=== PATIENT | female | born 1965 | race Caucasian/White ===

== ENCOUNTER → 2017-07-24 | Outpatient (CLI) | payer OTHER ==
[~2017-07-24] MED LIST: ACET325T14 PO; DEXA4TAB PO; ESTR50GE TP; HYDR-3240 PO; LEVE500T53 PO; PANT40TA5 PO
== END ==
LOC: ROC 07-24 10:15
PROVIDERS: ATTEND Radiology Radiation Oncology
DX: C71.9 Malignant neoplasm of brain, unspecified (principal); M54.12 Radiculopathy, cervical region
CPT/HCPCS: 99214; G0463

== ENCOUNTER → 2017-10-01 | Outpatient (CLI) | payer OTHER ==
[~2017-10-01] MED LIST changes: +AMOX1TAB64 PO; +AZIT250T PO; +DEXA1.5T5 PO; +FAMO-79 PO; +FLUC200T PO; +GUAI200T3 PO; +LACT1CAP24 PO; +MULT-479 PO; +ONDA4TAB10 PO; +SULF-169 PO; +TEMO140C5 PO
== END | disposition home or self-care (01) ==
LOC: CFH 11:19
PROVIDERS: ATTEND Radiology Radiation Oncology
DX: J18.9 Pneumonia, unspecified organism (principal); C71.1 Malignant neoplasm of frontal lobe
CPT/HCPCS: 71046

== ENCOUNTER 2017-10-02 12:02 | Inpatient (IN) | payer OTHER ==
[~2017-10-02] VITALS: Ht 170.2 cm; Wt 77.4 kg
[~2017-10-02 12:02] MED LIST changes: -AMOX1TAB64 PO; -AZIT250T PO; -DEXA1.5T5 PO; -FAMO-79 PO; -FLUC200T PO; -GUAI200T3 PO; -LACT1CAP24 PO; -MULT-479 PO; -ONDA4TAB10 PO; -SULF-169 PO; -TEMO140C5 PO
[2017-10-02 13:19] VITALS: BP 111/75
[2017-10-02] MEDS ORDERED: MULT-479 PO (14:21)
[2017-10-02] MEDS ORDERED: AZIT250T PO (14:21)
[2017-10-02] MEDS ORDERED: ONDA4TAB10 PO (14:21)
[2017-10-02] MEDS ORDERED: TEMO140C5 PO (14:21)
[2017-10-02] MEDS ORDERED: FLUC200T PO (14:21)
[2017-10-02] MEDS ORDERED: FAMO-79 PO (14:21)
[2017-10-02] MEDS ORDERED: DEXA1.5T5 PO ×2 (14:21)
[2017-10-02 14:32] LABS: BASOPHILS # (AUTO) 0.02 x10^3/uL (0-0.1); BASOPHILS % (AUTO) 0 % (0-1); EOSINOPHILS % (AUTO) 0 % (1-7); LYMPHOCYTES # (AUTO) 0.56 x10^3/uL (1-3.4); LYMPHOCYTES % (AUTO) 8 % (22-44); MD NO; MEAN CORPUSCULAR HEMOGLOBIN 31.9 pg (27.0-34.8); MEAN CORPUSCULAR HGB CONC 33.7 g/dL (32.4-35.8); MEAN CORPUSCULAR VOLUME 94.6 fL (80-100); MONOCYTES # (AUTO) 0.36 x10^3/uL (0.2-0.8); MONOCYTES % (AUTO) 5 % (2-9); NEUTROPHILS % (AUTO) 87 % (42-75); PLATELET COUNT 130 x10^3/uL (130-400); RED BLOOD COUNT 3.57 x10^6/uL (3.82-5.3); RED CELL DISTRIBUTION WIDTH 15.6 % (9.6-15.2)
[2017-10-02 14:43] LABS: ALANINE AMINOTRANSFERASE 58 U/L (12-78); ANION GAP 7 mmol/L (5-15); CALCIUM 8.2 mg/dL (8.5-10.1); CHLORIDE 102 mmol/L (98-107); CREATININE 0.78 mg/dL (0.55-1.02)
[2017-10-02 14:45] LABS: ALKALINE PHOSPHATASE 45 U/L (45-117); BILIRUBIN,TOTAL 0.9 mg/dL (0.2-1.0); TOTAL PROTEIN 6.1 g/dL (6.4-8.2)
[2017-10-02] MEDS: ENOXAPARIN 40 MG/0.4 ML SQ SCH (15:30)
[2017-10-02] MEDS ORDERED: morphine SULFATE 10 MG/ML, 1ML IVPush PRN (15:30)
[2017-10-02] MEDS ORDERED: hydrALAzine 20 MG/ML, 1ML IVPush PRN (15:30)
[2017-10-02] MEDS ORDERED: ONDANSETRON 2MG/ML, 2ML IVPush PRN (15:30)
[2017-10-02] MEDS ORDERED: TEMAZEPAM 15 MG CAPSULE PO PRN (15:30)
[2017-10-02] MEDS ORDERED: ACETAMINOPHEN 325 MG TABLET PO PRN (15:30)
[2017-10-02 15:56] LABS: FREE T4 (FREE THYROXINE) 1.4 ng/dL (0.76-1.46); THYROID STIMULATING HORMONE 1.41 mIU/L (0.358-3.740)
[2017-10-02] MEDS ORDERED: CEFTRIAXONE 2 GM in SODIUM CHLORIDE 0.9% 50 ML IV SCH (16:00)
[2017-10-02] MEDS ORDERED: CEFTRIAXONE PMX 2GM/50ML 50 ML IV SCH (16:00)
[2017-10-02] MEDS ORDERED: FLUCONAZOLE 200 MG TABLET PO SCH (16:00)
[2017-10-02] MEDS: PLEASE ENTER HEIGHT AND WEIGHT MC SCH ×3 (17:17→18:23)
[2017-10-02 17:30] VITALS: BP 121/78
[2017-10-02 18:13] VITALS: BP 121/78
[2017-10-02] MEDS ORDERED: FLUCONAZOLE 100 MG TABLET ONE (18:26)
[2017-10-02] MEDS: GUAIFENESIN 200 MG TABLET PO SCH ×2 (18:29→23:59)
[2017-10-02] MEDS: HYDROcodone/APAP 5/325 TABLET PO PRN (18:29)
[2017-10-02] MEDS: AZITHROMYCIN 500 MG in SODIUM CHLORIDE 0.9% 250 ML IV SCH (18:29)
[2017-10-02] MEDS: SODIUM CHLORIDE 0.9% 1,000 ML IV SCH (18:33)
[2017-10-02] MEDS: CEFTRIAXONE 2 GM in DEXTROSE 5% 50 ML IV SCH (20:01)
[2017-10-02] MEDS: LEVETIRACETAM 500 MG TABLET PO SCH (20:10)
[2017-10-02 20:11] VITALS: BP 107/70
[2017-10-02] MEDS ORDERED: DEXAMETHASONE 1 MG TABLET PO SCH (21:00)
[2017-10-02 21:20] LABS: MICROSCOPIC AUTO
[2017-10-02 21:21] LABS: CULTURE INDICATED? NO
[2017-10-03] MEDS: HYDROcodone/APAP 5/325 TABLET PO PRN (03:26)
[2017-10-03 03:34] VITALS: BP 110/71
[2017-10-03 04:53] LABS: BASOPHILS # (AUTO) 0.02 x10^3/uL (0-0.1); BASOPHILS % (AUTO) 0 % (0-1); EOSINOPHILS # (AUTO) 0.01 x10^3/uL (0-0.4); EOSINOPHILS % (AUTO) 0 % (1-7); LYMPHOCYTES # (AUTO) 0.36 x10^3/uL (1-3.4); LYMPHOCYTES % (AUTO) 5 % (22-44); MD NO; MEAN CORPUSCULAR HEMOGLOBIN 32.9 pg (27.0-34.8); MEAN PLATELET VOLUME 7.1 fL (7.4-10.4); MONOCYTES # (AUTO) 0.33 x10^3/uL (0.2-0.8); MONOCYTES % (AUTO) 5 % (2-9); NEUTROPHILS # (AUTO) 6.11 x10^3/uL (1.8-6.8); NEUTROPHILS % (AUTO) 90 % (42-75); PLATELET COUNT 146 x10^3/uL (130-400); RED BLOOD COUNT 3.39 x10^6/uL (3.82-5.3); RED CELL DISTRIBUTION WIDTH 15.2 % (9.6-15.2)
[2017-10-03 05:01] LABS: ALBUMIN 2.8 g/dL (3.4-5.0); ANION GAP 9 mmol/L (5-15); CALCIUM 7.8 mg/dL (8.5-10.1); CHLORIDE 102 mmol/L (98-107)
[2017-10-03 05:04] LABS: ALANINE AMINOTRANSFERASE 54 U/L (12-78); ALKALINE PHOSPHATASE 45 U/L (45-117); BILIRUBIN,TOTAL 0.8 mg/dL (0.2-1.0); CREATININE 0.67 mg/dL (0.55-1.02); TOTAL PROTEIN 6.2 g/dL (6.4-8.2)
[2017-10-03] MEDS: SODIUM CHLORIDE 0.9% 1,000 ML IV SCH ×2 (05:56→15:55)
[2017-10-03 07:17] VITALS: BP 133/85
[2017-10-03] MEDS: GUAIFENESIN 200 MG TABLET PO SCH ×3 (08:26→20:34)
[2017-10-03] MEDS: LEVETIRACETAM 500 MG TABLET PO SCH ×2 (08:26→20:38)
[2017-10-03] MEDS: MULTIVITAMINS WITH IRON TABLET PO SCH (08:26)
[2017-10-03] MEDS: FAMOTIDINE 20 MG TABLET PO SCH (08:27)
[2017-10-03] MEDS ORDERED: TEMOZOLOMIDE 140 MG PO SCH (09:00)
[2017-10-03] MEDS ORDERED: DEXAMETHASONE 4 MG TABLET PO SCH (09:00)
[2017-10-03] MEDS: DEXAMETHASONE 4 MG TABLET PO SCH (11:30)
[2017-10-03] MEDS: POTASSIUM CHLORIDE 20 MEQ TAB.ER.PRT PO SCH ×2 (11:52→14:00)
[2017-10-03 12:47] VITALS: BP 119/77
[2017-10-03] MEDS: ENOXAPARIN 40 MG/0.4 ML SQ SCH (15:30)
[2017-10-03] MEDS: PLEASE ENTER HEIGHT AND WEIGHT MC SCH (15:30)
[2017-10-03] MEDS: AZITHROMYCIN 500 MG in SODIUM CHLORIDE 0.9% 250 ML IV SCH (16:04)
[2017-10-03 18:30] VITALS: BP 108/69
[2017-10-03] MEDS: SULFAMETH./TRIMETHOPRIM DS 800MG/160MG TABLET PO SCH (20:33)
[2017-10-03] MEDS: CEFTRIAXONE 2 GM in DEXTROSE 5% 50 ML IV SCH (20:34)
[2017-10-04 01:45] VITALS: BP 114/71
[2017-10-04 04:51] LABS: BASOPHILS % (AUTO) 0 % (0-1); EOSINOPHILS % (AUTO) 0 % (1-7); LYMPHOCYTES # (AUTO) 0.32 x10^3/uL (1-3.4); LYMPHOCYTES % (AUTO) 5 % (22-44); MD NO; MEAN CORPUSCULAR HEMOGLOBIN 32.7 pg (27.0-34.8); MEAN CORPUSCULAR HGB CONC 34.4 g/dL (32.4-35.8); MEAN CORPUSCULAR VOLUME 95.1 fL (80-100); MEAN PLATELET VOLUME 7.3 fL (7.4-10.4); MONOCYTES # (AUTO) 0.35 x10^3/uL (0.2-0.8); MONOCYTES % (AUTO) 5 % (2-9); NEUTROPHILS # (AUTO) 5.83 x10^3/uL (1.8-6.8); NEUTROPHILS % (AUTO) 90 % (42-75); PLATELET COUNT 163 x10^3/uL (130-400); RED BLOOD COUNT 3.47 x10^6/uL (3.82-5.3); RED CELL DISTRIBUTION WIDTH 14.9 % (9.6-15.2)
[2017-10-04 05:01] LABS: ALBUMIN 2.8 g/dL (3.4-5.0); ANION GAP 8 mmol/L (5-15); CALCIUM 8.3 mg/dL (8.5-10.1); CHLORIDE 111 mmol/L (98-107)
[2017-10-04 05:04] LABS: ALANINE AMINOTRANSFERASE 46 U/L (12-78); ALKALINE PHOSPHATASE 45 U/L (45-117); BILIRUBIN,TOTAL 0.6 mg/dL (0.2-1.0); CREATININE 0.69 mg/dL (0.55-1.02); TOTAL PROTEIN 6.4 g/dL (6.4-8.2)
[2017-10-04 07:03] VITALS: BP 121/80
[2017-10-04] MEDS ORDERED: SULF-169 PO (08:41)
[2017-10-04] MEDS ORDERED: GUAI200T3 PO (08:41)
[2017-10-04] MEDS ORDERED: AMOX1TAB64 PO (08:41)
[2017-10-04] MEDS ORDERED: LACT1CAP24 PO (08:41)
[2017-10-04] MEDS: FAMOTIDINE 20 MG TABLET PO SCH (09:42)
[2017-10-04] MEDS: DEXAMETHASONE 4 MG TABLET PO SCH (09:42)
[2017-10-04] MEDS: LEVETIRACETAM 500 MG TABLET PO SCH (09:42)
[2017-10-04] MEDS: MULTIVITAMINS WITH IRON TABLET PO SCH (09:42)
[2017-10-04] MEDS: SULFAMETH./TRIMETHOPRIM DS 800MG/160MG TABLET PO SCH (09:43)
[2017-10-04] MEDS: GUAIFENESIN 200 MG TABLET PO SCH (09:54)
[2017-10-12] MEDS ORDERED: ENOX80SY4 SQ (11:57)
== END 2017-10-04 11:28 | disposition home or self-care (01) | DRG 177 ==
LOC: 4WST 12:17 → 3NW 17:37
PROVIDERS: ADMIT Internal Medicine; ATTEND Internal Medicine
DX: J15.6 Pneumonia due to other Gram-negative bacteria (principal); E43 Unspecified severe protein-calorie malnutrition; K21.9 Gastro-esophageal reflux disease without esophagitis; E87.6 Hypokalemia; Z85.841 Personal history of malignant neoplasm of brain; Z68.26 Body mass index [BMI] 26.0-26.9, adult
CPT/HCPCS: 36415; 80053; 81001; 83735; 84100; 84439; 84443; 85025; 87040; 87070; 87205; J0456; J0696; J2405; J7030; J7050

== ENCOUNTER → 2017-10-08 | Outpatient (CLI) | payer OTHER ==
[~2017-10-08] MED LIST changes: +AMOX1TAB64 PO; +AZIT250T PO; +DEXA1.5T5 PO; +FAMO-79 PO; +FLUC200T PO; +GADOBUTROL 7.5 MMOL/7.5 ML VIAL ONE; +GUAI200T3 PO; +LACT1CAP24 PO; +MULT-479 PO; +ONDA4TAB10 PO; +SULF-169 PO; +TEMO140C5 PO
== END | disposition home or self-care (01) ==
LOC: CFH 11:27
PROVIDERS: ATTEND Neurological Surgery
DX: C71.9 Malignant neoplasm of brain, unspecified (principal)
CPT/HCPCS: 70553; A9585

== ENCOUNTER → 2017-10-12 | Outpatient (CLI) | payer OTHER ==
[~2017-10-12] MED LIST changes: +ENOX80SY4 SQ; -GADOBUTROL 7.5 MMOL/7.5 ML VIAL ONE
== END | disposition home or self-care (01) ==
LOC: ROC 08:04
PROVIDERS: ATTEND Radiology Radiation Oncology
DX: Z02.9 Encounter for administrative examinations, unspecified (principal)

== ENCOUNTER 2018-02-03 14:17 | Day surgery (SDC) | payer OTHER ==
[2018-02-02 12:43] VITALS: BP 117/74
[2018-02-02 13:13] LABS: INTERNATIONAL NORMALIZED RATIO 0.96 (0.93-1.1)
[~2018-02-03] VITALS: Ht 170.2 cm; Wt 73.3 kg
[~2018-02-03 14:17] MED LIST changes: +CALC-42 PO; +CEFAZOLIN 1,000 MG ONE; +CHOL20002 PO; +FISH OIL PO; +GLYCOPYRROLATE 0.2MG/1ML, 5ML ONE; +TEMO250C3 PO; +TURM1POW PO
[2018-02-03] MEDS ORDERED: LACTATED RINGERS 1,000 ML IV SCH (14:47)
[2018-02-03] MEDS ORDERED: FENTANYL PF 100 MCG/2ML ONE ×2 (18:10→19:04)
[2018-02-03] MEDS ORDERED: MIDAZOLAM 1 MG/ML, 2ML ONE (18:10)
[2018-02-03] MEDS ORDERED: THROMBIN 5,000 UNIT VIAL TP ONE (18:12)
[2018-02-03] MEDS ORDERED: BUPIVACAINE/PF-EPI 0.5% 1:200K ONE (18:12)
[2018-02-03] MEDS ORDERED: BACITRACIN 50,000 UNIT ONE (18:12)
[2018-02-03] MEDS ORDERED: SUCCINYLCHOLINE 20 MG/ML, 10ML ONE (18:13)
[2018-02-03] MEDS ORDERED: PROPOFOL 10 MG/ML, 20ML ONE (18:13)
[2018-02-03] MEDS ORDERED: ROCURONIUM 10MG/ML,5ML ONE (18:13)
[2018-02-03] MEDS ORDERED: OXYC-302 PO (18:14)
[2018-02-03] MEDS ORDERED: CEPH-368 PO (18:15)
[2018-02-03] MEDS ORDERED: TEMOZOLOMIDE PO SCH (18:30)
[2018-02-03] MEDS ORDERED: OXYcodone/APAP 5/325MG TABLET PO PRN (18:30)
[2018-02-03] MEDS ORDERED: CEFAZOLIN 1,000 MG ONE (18:31)
[2018-02-03] MEDS ORDERED: ONDANSETRON 2MG/ML, 2ML ONE ×2 (18:51→19:03)
[2018-02-03] MEDS ORDERED: BACITRACIN OINT 500U/GM, 15 GM ONE (19:04)
[2018-02-03] MEDS ORDERED: MEPERIDINE/PF 50 MG/ML ONE (19:23)
[2018-02-03] MEDS ORDERED: ACETAMINOPHEN 325 MG TABLET PO PRN (19:30)
[2018-02-03] MEDS ORDERED: hydrALAzine 20 MG/ML, 1ML IV PRN (19:30)
[2018-02-03] MEDS ORDERED: LORazepam 2 MG/ML, 1ML IVPush PRN (19:30)
[2018-02-03] MEDS ORDERED: MIDAZOLAM 1 MG/ML, 2ML IV PRN (19:30)
[2018-02-03] MEDS ORDERED: PROMETHAZINE 12.5 MG SUPP PR PRN (19:30)
[2018-02-03] MEDS ORDERED: LABETALOL 5MG/ML, 20ML IV PRN (19:30)
[2018-02-03] MEDS ORDERED: ALBUTEROL SULFATE 2.5 MG/3 ML NPPB PRN (19:30)
[2018-02-03] MEDS ORDERED: FENTANYL PF 100 MCG/2ML IV PRN (19:30)
[2018-02-03] MEDS ORDERED: ONDANSETRON 2MG/ML, 2ML IV PRN (19:30)
[2018-02-03] MEDS ORDERED: ONDANSETRON ODT 8 MG PO PRN (19:30)
[2018-02-03] MEDS ORDERED: HYDROmorphone 2 MG/ML, 1ML IV PRN (19:30)
[2018-02-03] MEDS ORDERED: PROMETHAZINE 25 MG/ML, 1ML IV PRN (19:30)
[2018-02-03] MEDS ORDERED: OXYcodone 5 MG/5 ML ORAL.SOL UDC PO PRN (19:30)
[2018-02-03] MEDS ORDERED: MEPERIDINE/PF 25MG/0.5ML IVPush PRN (19:30)
[2018-02-03] MEDS ORDERED: ACETAMINOPHEN 650 MG/20.3 ML UDC ONE (19:43)
[2018-02-03] MEDS ORDERED: ACETAMINOPHEN 325 MG TABLET ONE (19:43)
[2018-02-03] MEDS ORDERED: OXYcodone 5 MG/5 ML ORAL.SOL UDC ONE (19:44)
[2018-02-03] MEDS ORDERED: DEXAMETHASONE 4 MG TABLET PO SCH (21:00)
[2018-02-03] MEDS ORDERED: OMEGA-3/FISH OIL CAPSULE PO SCH (21:00)
[2018-02-03] MEDS ORDERED: CEPHALEXIN 500 MG CAPSULE PO SCH (21:00)
[2018-02-04] MEDS ORDERED: CHOLECALCIFEROL 1,000 UNIT TABLET PO SCH (09:00)
== END 2018-02-03 20:00 ==
LOC: SDC 14:17 → EDSTATUS 16:30 → SDC 20:00
PROVIDERS: ATTEND Neurological Surgery
DX: T81.30XA Disruption of wound, unspecified, initial encounter (principal); G43.909 Migraine, unspecified, not intractable, without status migrainosus; Y83.8 Other surgical procedures as the cause of abnormal reaction of the patient, or of later complication, without mention of misadventure at the time of the procedure; Y92.89 Other specified places as the place of occurrence of the external cause; Z98.890 Other specified postprocedural states
CPT/HCPCS: 20680; 36415; 85610; 85730; 86850; 86900; J0330; J0690; J2175; J2250; J2405; J2704; J3010; J3490; J7120

== ENCOUNTER 2018-04-01 05:41 | Day surgery (SDC) | payer OTHER ==
[~2018-04-01] VITALS: Ht 170.2 cm; Wt 74.3 kg
[~2018-04-01 05:41] MED LIST changes: -CEFAZOLIN 1,000 MG ONE; +CEPH-368 PO; -CHOL20002 PO; +CHOL200052 PO; -GLYCOPYRROLATE 0.2MG/1ML, 5ML ONE; +OXYC-302 PO
[2018-04-01 06:15] VITALS: BP 120/81
[2018-04-01] MEDS ORDERED: APIX2.5T PO (06:26)
[2018-04-01] MEDS ORDERED: LACTATED RINGERS 1,000 ML IV SCH (06:36)
[2018-04-01 06:54] LABS: BASOPHILS # (AUTO) 0.02 x10^3/uL (0-0.1); BASOPHILS % (AUTO) 0 % (0-1); EOSINOPHILS % (AUTO) 0 % (1-7); LYMPHOCYTES % (AUTO) 14 % (22-44); MD NO; MEAN CORPUSCULAR HEMOGLOBIN 34.4 pg (27.0-34.8); MEAN CORPUSCULAR HGB CONC 34.6 g/dL (32.4-35.8); MEAN CORPUSCULAR VOLUME 99.3 fL (80-100); MEAN PLATELET VOLUME 6.5 fL (7.4-10.4); MONOCYTES # (AUTO) 0.34 x10^3/uL (0.2-0.8); MONOCYTES % (AUTO) 6 % (2-9); NEUTROPHILS # (AUTO) 4.72 x10^3/uL (1.8-6.8); NEUTROPHILS % (AUTO) 80 % (42-75); PLATELET COUNT 229 x10^3/uL (130-400); RED BLOOD COUNT 3.79 x10^6/uL (3.82-5.3); RED CELL DISTRIBUTION WIDTH 16.9 % (9.6-15.2)
[2018-04-01 07:04] LABS: ANION GAP 10 mmol/L (5-15); CALCIUM 9.4 mg/dL (8.5-10.1); CHLORIDE 107 mmol/L (98-107); CREATININE 1.01 mg/dL (0.55-1.02)
[2018-04-01] MEDS ORDERED: BUPIVACAINE/PF-EPI 0.5% 1:200K ONE (07:04)
[2018-04-01 07:05] LABS: INTERNATIONAL NORMALIZED RATIO 0.96 (0.93-1.1)
[2018-04-01] MEDS ORDERED: THROMBIN 5,000 UNIT VIAL TP ONE (07:05)
[2018-04-01] MEDS ORDERED: BACITRACIN OINT 500U/GM, 15 GM ONE (07:05)
[2018-04-01] MEDS ORDERED: BACITRACIN 50,000 UNIT ONE (07:05)
[2018-04-01] MEDS ORDERED: FENTANYL PF 250 MCG/5ML ONE (07:17)
[2018-04-01] MEDS ORDERED: CEFAZOLIN 1,000 MG ONE (07:40)
[2018-04-01] MEDS ORDERED: SUCCINYLCHOLINE 20 MG/ML, 10ML ONE ×2 (07:40→08:04)
[2018-04-01] MEDS ORDERED: PROPOFOL 10 MG/ML, 20ML ONE (08:03)
[2018-04-01] MEDS ORDERED: EPHEDRINE 50 MG/ML, 1ML IM PRN ×2 (08:30)
[2018-04-01] MEDS ORDERED: ACETAMINOPHEN 325 MG TABLET PO PRN ×2 (08:30)
[2018-04-01] MEDS ORDERED: MORPHINE SULFATE 4 MG/ML, 1ML IVPush PRN ×2 (08:30)
[2018-04-01] MEDS ORDERED: MIDAZOLAM 1 MG/ML, 2ML IV PRN ×2 (08:30)
[2018-04-01] MEDS ORDERED: DIPHENHYDRAMINE 50 MG/ML, 1ML IVPush PRN ×2 (08:30)
[2018-04-01] MEDS ORDERED: FENTANYL PF 100 MCG/2ML IV PRN ×2 (08:30)
[2018-04-01] MEDS ORDERED: PROMETHAZINE 25 MG/ML, 1ML IV PRN ×2 (08:30)
[2018-04-01] MEDS ORDERED: OXYcodone 5 MG/5 ML ORAL.SOL UDC PO PRN ×2 (08:30)
[2018-04-01] MEDS ORDERED: ONDANSETRON ODT 8 MG PO PRN ×2 (08:30)
[2018-04-01] MEDS ORDERED: PROMETHAZINE 12.5 MG SUPP PR PRN ×2 (08:30)
[2018-04-01] MEDS ORDERED: PROMETHAZINE 25 MG SUPP PR PRN ×2 (08:30)
[2018-04-01] MEDS ORDERED: DEXAMETHASONE 4 MG/ML, 1ML ONE (08:41)
[2018-04-01] MEDS ORDERED: ONDANSETRON 2MG/ML, 2ML ONE ×2 (08:41)
[2018-04-01] MEDS ORDERED: ACETAMINOPHEN 650 MG/20.3 ML UDC ONE (09:22)
[2018-04-01] MEDS ORDERED: OXYcodone 5 MG/5 ML ORAL.SOL UDC ONE (09:22)
[2018-04-01] MEDS ORDERED: FENTANYL PF 100 MCG/2ML ONE (09:23)
== END 2018-04-01 11:40 | disposition home or self-care (01) ==
LOC: OUT 05:41
PROVIDERS: ATTEND Neurological Surgery
DX: T81.30XA Disruption of wound, unspecified, initial encounter (principal); G43.909 Migraine, unspecified, not intractable, without status migrainosus; Y83.8 Other surgical procedures as the cause of abnormal reaction of the patient, or of later complication, without mention of misadventure at the time of the procedure; Y92.89 Other specified places as the place of occurrence of the external cause; Z98.890 Other specified postprocedural states; Z79.899 Other long term (current) drug therapy
CPT/HCPCS: 10180; 36415; 80048; 85025; 85610; 85730; 87070; 87075; 87077; 87186; 87205; J0330; J0690; J1100; J2405; J2704; J3010; J7120